=== PATIENT | male | born 1985 | race Caucasian/White ===

== ENCOUNTER 2019-10-04 02:46 | Emergency (ER) | payer BC ==
--- NOTE | 2019-10-04 03:10 | EDM.PDOC ---
ED HPI GENERAL MEDICAL PROBLEM - General Chief Complaint: Cardiovascular Problem Stated Complaint: [facility] ambulance Time Seen by Provider: 10/04/19 03:01 - History of Present Illness INITIAL COMMENTS - FREE TEXT/NARRATIVE: 33-year-old male presents the emergency room with testicular swelling on the right side. This is been going on for approximately 5 years and progressively getting worse over time. Now it is to the point where it causes some discomfort when he gets up and walks. Patient has not had any associated nausea vomiting diarrhea or other gastrointestinal symptoms. However, all of a sudden the patient wants this fixed. The patient also states that his heart was beating a little faster earlier today he is doing well on the monitors at this time. Other than this the patient denies any past medical problems. He does not smoke he drinks on a regular basis Treatments [employer] REP: Reports: EKG - Related Data Allergies Allergy/AdvReac Type Severity Reaction Status Date / Time No Known Allergies Allergy Verified 10/04/19 02:54 Home Meds: Home Meds . [No Known Home Meds] 10/04/19 [History] Past Medical History - Past Health History Medical/Surgical History: Denies Medical/Surgical History Social & Family History - Tobacco Use Smoking Status *Q: Never Smoker - Alcohol Use Days Per Week of Alcohol Use: 7 Number of Drinks Per Day: 10 Total Drinks Per Week: 70 - Recreational Drug Use Recreational Drug Use: No ED ROS GENERAL - Review of Systems Review Of Systems: See Below Constitutional: Reports: No Symptoms HEENT: Reports: No Symptoms Respiratory: Reports: No Symptoms Cardiovascular: Reports: No Symptoms Endocrine: Reports: No Symptoms GI/Abdominal: Reports: No Symptoms : Reports: No Symptoms Musculoskeletal: Reports: No Symptoms Skin: Reports: No Symptoms Neurological: Reports: No Symptoms ED EXAM, GENERAL - Physical Exam Exam: See Below Exam Limited By: No Limitations General Appearance: Alert, No Apparent Distress Head: Atraumatic, Normocephalic Neck: Normal Inspection, Supple, Non-Tender, Full Range of Motion Respiratory/Chest: No Respiratory Distress, Lungs Clear, Normal Breath Sounds Cardiovascular: Regular Rate, Rhythm, No Edema, No Murmur GI/Abdominal: Normal Bowel Sounds, Soft, Non-Tender, No Distention, No Mass. No: Guarding, Rigid, Rebound (Male) Exam: Hernia (Inguinal on the right side there appears to extend into the testicle). No: Urethral Discharge Back Exam: Normal Inspection. No: CVA Tenderness (L), CVA Tenderness (R) Extremities: Normal Inspection, No Pedal Edema Neurological: Alert, Oriented Course - Vital Signs Last Recorded V/S: Last Vital Signs Temp 37.1 C 10/04/19 02:52 Pulse 79 10/04/19 02:52 Resp 16 10/04/19 02:52 BP 141/82 H 10/04/19 02:52 Pulse Ox 100 10/04/19 02:52 - Orders/Labs/Meds Orders: Active Orders 24 hr Category Date Time Status EKG Documentation Completion [RC] ASDIRECTED Care 10/04/19 02:57 Active Chest 1V Frontal [CR] Stat Exams 10/04/19 02:57 Taken Scrotum and Contents [US] Stat Exams 10/04/19 03:11 Taken EKG 12 Lead [EK] Stat Ther 10/04/19 02:57 Ordered Labs: Laboratory Tests 10/04/19 10/04/19 10/04/19 Range/Units 03:00 03:23 03:23 WBC 9.59 H (4.23-9.07) K/mm3 RBC 5.45 (4.63-6.08) M/mm3 Hgb 16.4 (13.7-17.5) gm/dl Hct 46.0 (40.1-51.0) % MCV 84.4 (79.0-92.2) fl MCH 30.1 (25.7-32.2) pg MCHC 35.7 H (32.2-35.5) g/dl RDW Std Deviation 39.8 (35.1-43.9) fL Plt Count 309 (163-337) K/mm3 MPV 9.4 (9.4-12.3) fl Neut % (Auto) 67.6 (34.0-67.9) % Lymph % (Auto) 23.5 (21.8-53.1) % George % (Auto) 7.1 (5.3-12.2) % Eos % (Auto) 1.4 (0.8-7.0) Baso % (Auto) 0.2 (0.1-1.2) % Neut # (Auto) 6.49 H (1.78-5.38) K/mm3 Lymph # (Auto) 2.25 (1.32-3.57) K/mm3 George # (Auto) 0.68 (0.30-0.82) K/mm3 Eos # (Auto) 0.13 (0.04-0.54) K/mm3 Baso # (Auto) 0.02 (0.01-0.08) K/mm3 Sodium 139 (136-145) mEq/L Potassium 3.1 L (3.5-5.1) mEq/L Chloride 101 (98-107) mEq/L Carbon Dioxide 24 (21-32) mEq/L Anion Gap 17.1 H (5-15) BUN 16 (7-18) mg/dL Creatinine 1.3 (0.7-1.3) mg/dL Est Cr Clr Drug Dosing 93.09 mL/min Estimated GFR (MDRD) > 60 (>60) mL/min BUN/Creatinine Ratio 12.3 L (14-18) Glucose 131 H (74-106) mg/dL Calcium 9.4 (8.5-10.1) mg/dL Total Bilirubin 0.9 (0.2-1.0) mg/dL AST 33 (15-37) U/L ALT 60 (16-63) U/L Alkaline Phosphatase 66 (46-116) U/L Troponin I < 0.017 (0.00-0.056) ng/mL Total Protein 8.2 (6.4-8.2) g/dl Albumin 4.4 (3.4-5.0) g/dl Globulin 3.8 gm/dL Albumin/Globulin Ratio 1.2 (1-2) TSH 3rd Generation 2.327 (0.358-3.74) uIU/mL Urine Opiates Screen Negative (EIAIIP=681) Ur Buprenorphine Scrn Negative (CUTOFF=10) Ur Oxycodone Screen Negative (QUW6RR=670) Urine Methadone Screen Negative (OYQ5SR=445) Ur Propoxyphene Screen Negative (RRJEZA=175) Ur Barbiturates Screen Negative (GYDPWI=127) Ur Tricyclics Screen Negative (WHYLIQ=584) Ur Phencyclidine Scrn Negative (CUTOFF=25) Ur Amphetamine Screen Negative (SRWIHD=392) U Methamphetamines Scrn Negative (WSRLRQ=533) U Benzodiazepines Scrn Negative (MIJHIK=260) U Cocaine Metab Screen Negative (LEOAYG=343) U Marijuana (THC) Screen Presumptive positive H (CUTOFF=50) Ethyl Alcohol 0.00 (0.00) gm% Meds: Medications Discontinued Medications Generic Name Dose Route Start Last Admin Trade Name Alisa PRN Reason Stop Dose Admin Potassium Chloride 40 meq 10/04/19 04:31 Klor-Con M20 PO 10/04/19 04:32 ONETIME ONE - Re-Assessments/Exams Free Text/Narrative Re-Assessment/Exam: 10/04/19 05:10 Discussed the findings of the work-up with the patient including labs and the ultrasound report and the patient would like to go to [place] to have his hernia repaired which is his choice. I encouraged him to stay locally however this for whatever reason this will not work for him. Departure - Departure Time of Disposition: 05:11 Disposition: Home, Self-Care 01 Clinical Impression: Right inguinal hernia Referrals: PCP,Not In Area [Primary Care Provider] - Keron Parra MD [Physician] - Forms: ED Department Discharge Additional Instructions: Turn to the emergency room with any questions problems or worsening symptoms. Call Dr. Parra's office in the morning for an appointment. Sepsis Event Note (ED) - Evaluation Sepsis Screening Result: No Definite Risk - Focused Exam Vital Signs: Vital Signs Temp Pulse Resp BP Pulse Ox 10/04/19 02:52 37.1 C 79 16 141/82 H 100 - My Orders Last 24 Hours: My Active Orders 10/04/19 02:57 EKG Documentation Completion [RC] ASDIRECTED Chest 1V Frontal [CR] Stat EKG 12 Lead [EK] Stat 10/04/19 03:11 Scrotum and Contents [US] Stat - Assessment/Plan Last 24 Hours: My Active Orders 10/04/19 02:57 EKG Documentation Completion [RC] ASDIRECTED Chest 1V Frontal [CR] Stat EKG 12 Lead [EK] Stat 10/04/19 03:11 Scrotum and Contents [US] Stat
[2019-10-04] MEDS ORDERED: Potassium Chloride 20 MEQ Tab.ER PO ONE (04:31)
--- NOTE | 2019-10-04 09:39 | CR ---
Chest: Portable supine view of the chest was obtained. Comparison: No prior chest imaging is available. Heart size and mediastinum are normal. Lungs are clear with no acute parenchymal change. Bony structures are unremarkable. Impression: 1. Nothing acute is appreciated on portable supine chest x-ray. Diagnostic code #1 This report was dictated in MDT
--- NOTE | 2019-10-04 09:39 | US ---
Testicular ultrasound: Multiple real-time images of the testicles were obtained. Testicles are homogeneous in appearance. Arterial and venous blood flow is noted within both testicles. Minimal bilateral hydroceles are noted. Finding suspicious for small left-sided varicocele. Measurements: Right testicle: 4.8 x 2.2 x 3.6 cm Left testicle: 4.8 x 2.1 x 2.8 cm Impression: 1. Small bilateral hydroceles. 2. Possible small left-sided varicocele. 3. No intratesticular abnormality is seen. Diagnostic code #3 This report was dictated in MDT I agree with preliminary report from [facility], finalized on 09/24, 5:29 AM Central Daylight Time
== END 2019-10-04 05:15 | disposition home or self-care (01) ==
LOC: JD.ED 02:46
DX: K40.90 Unilateral inguinal hernia, without obstruction or gangrene, not specified as recurrent (principal)
CPT/HCPCS: 36415; 71045; 76870; 80053; 80306; 80307; 84443; 84484; 85025; 93005; 93975; 99285; A9270